=== PATIENT | male | born 1945 | race Caucasian/White ===

== ENCOUNTER 2019-02-03 09:09 | Day surgery (SDC) | payer MEDICARE, OTHER, SELFPAY ==
[2019-01-31 10:23] VITALS: BP 122/62; PULSE 61; RESP 18; TEMP 36.4; O2SAT 97; BMI 31.1
[2019-01-31 12:29] LABS: Hemoglobin A1c 8.1 % (4.2-6.3)
[2019-01-31 12:35] LABS: Thyroid Stim Hormone (TSH) 3.02 uIU/mL (0.358-3.74)
[2019-01-31 13:15] LABS: Anion Gap 7 (5-15); BUN 25 mg/dL (7-18); BUN/Creat Ratio 15.5 RATIO (10-20); Calcium,Total 9.2 mg/dL (8.5-10.1); Chloride 100 mmol/L (98-107); Creatinine, Serum 1.61 mg/dL (0.70-1.30); EST Glomerular Filtration Rate 45 mL/min (>60); Est Glom Filt Rate - Afr Amer 54 mL/min (>60); Estimated Creatinine Clearance 46.87 ml/min; Glucose 202 mg/dL (74-106); Potassium 3.8 mmol/L (3.5-5.1); Sodium Level 136 mmol/L (136-145)
[2019-02-03] VITALS (12 sets, daily range): BP systolic 116–163; BP diastolic 69–79; PULSE 42–105; RESP 14–18; TEMP 36.1–37.1; O2SAT 94–100; BMI 31.1
[2019-02-03 09:55] LABS: Bedside Glucose 181 mg/dL (70-110)
[2019-02-03] MEDS: Cefazolin 2 GM in 0.9% Normal Saline 100 ML IV (11:03)
--- NOTE | 2019-02-03 11:05 | PCM.DC.URO ---
Discharge Diet: Light diet - advance as tolerated Discharge Activity: Return to Normal Activity Call your doctor if your incision/area has: Sudden Increased Bleeding, Increased Pain/ Swelling, Increased Redness, Foul Smelling Discharge, Swelling at the incision site Call your doctor if you observe: Inability to urinate Instructions: Transurethral Resection of the Prostate (TURP): Home Recovery Allergies/Adverse Reactions: Allergies imipramine HCl [From Tofranil] Allergy (Verified 02/03/19 09:18) Unknown metoclopramide HCl [From Reglan] Allergy (Verified 02/03/19 09:18) Unknown oxycodone HCl [From Percocet] Allergy (Verified 02/03/19 09:18) Unknown Penicillins [PCN] Allergy (Verified 02/03/19 09:18) Unknown phenol [From Chloraseptic] Allergy (Verified 02/03/19 09:18) Unknown sodium phenolate [From Chloraseptic] Allergy (Verified 02/03/19 09:18) Unknown Medications to take at Discharge Finasteride [Proscar] 5 mg PO QHS 07/13/14 Pantoprazole Sodium [Protonix] 40 mg PO DAILY 07/13/14 Simvastatin [Zocor] 20 mg PO QHS 07/13/14 Tamsulosin HCl [Flomax] 0.8 mg PO QHS 07/13/14 Clopidogrel Bisulfate [Plavix] 75 mg PO DAILY #30 tab 07/14/14 amlodipine 10 mg tablet 10 mg PO QHS 06/24/17 carvedilol 12.5 mg tablet 12.5 mg PO BID 06/24/17 levothyroxine 150 mcg tablet 150 mcg PO QDAY tab 06/24/17 lisinopril 30 mg tablet 40 mg PO QHS 06/24/17 metformin 1,000 mg tablet 1,000 mg PO BID 06/24/17 Albuterol Inhaler [Ventolin Hfa (SP)] 1 - 2 puff INHALATION Q6H PRN PRN 01/31/19 Alogliptin Benzoate [Alogliptin] 25 mg PO DAILY 01/31/19 Furosemide [Lasix] 20 mg PO DAILY 01/31/19 Hydralazine HCl 25 mg PO BID 01/31/19 Hydrochlorothiazide [Hctz] 25 mg PO DAILY 01/31/19 Pioglitazone HCl 15 mg PO DAILY 01/31/19 Sertraline HCl [Zoloft] 100 mg PO QHS 01/31/19 Smz/Tmp Ds [Bactrim Ds] 1 tab PO DAILY 01/31/19 Tiotropium [place] [Spiriva 18 MCG] 2 puff INHALATION DAILY 01/31/19 Ciprofloxacin [Cipro] 500 mg PO BID #20 tab 02/03/19 The following prescriptions were given: Ciprofloxacin [Cipro] 500 mg PO BID #20 tab Prescription Printed Orders to be completed after discharge: Basic Metabolic Profile (BMP) Time Frame: 01/31/19, Facility: [facility], Location: Laboratory Primary Care Physician: Jeanmarie Marsh DO [Primary Care Provider] - Test Results: Test results from this visit will be discussed in further detail at your follow-up appointment, if applicable. Please Follow Up With: Daniele Sampson MD When: in 2 weeks, please call to make an appointment.
--- NOTE | 2019-02-03 11:30 | PROS_PTH ---
PATIENT: BROWN HERNANDEZ [place] [facility] [id number] AGE/SX: 73/M ROOM: RE02/03/[address]: Dr. Daniele Sampson MD : 1945 BED: DIS: 02/04/2019 SPEC #: [id number] RECD: 02/03/19 14:46 STATUS: LUZ MARIA REKalani #: [id number] KEIRA: 02/03/19 11:[address]: Daniele Sampson DEPT: SURGICAL PATHOLOGY RECD BY: Chyna Sexton ENTERED: 02/06/19 10:34 SP TYPE: TURP OTHR DR: Dr. Jeanmarie Marsh, Tissues: Prostate, NOS Procedures: Surgery Specimen Level IV HEADER OPERATION: Cysto, TUR, prostate, Olympus PRE-OP DIAGNOSIS: Benign prostate hyperplasia with lower urinary tract symptoms, other urine retention, poor urinary stream TISSUE SUBMITTED: Prostate tissue MICROSCOPIC DIAGNOSIS Prostate, transurethral resection: Benign nodular hyperplasia. Chronic granulomatous prostatitis. AM:will 02/07/19 MICROSCOPIC DESCRIPTION Slides are reviewed. GROSS DESCRIPTION Received is one container labeled with the patient's name and designated prostate tissue. The specimen consists of multiple irregular fragments of pink-masters, rubbery, soft tissue that in aggregate weigh 4.8 gm and measure in aggregate 6 x 3 x 0.8 cm. The entire specimen is submitted in five cassettes. / AM:will 02/06/19 TC:3 CPT: 68323
--- NOTE | 2019-02-03 11:44 | OP.PCM_ITS ---
Report of Operation Date of Procedure: 02/03/19 Pre-Operative Diagnosis: BPH with obstruction and urinary retention Post-Operative Diagnosis: The same Surgery/Procedure Performed:: Transurethral resection of the prostate with a bipolar Olympus Description of Surgical Findings:: Indication 73-year-old male with BPH obstruction and retention the urine is failed a voiding trial and medications so we can proceed with surgery with a resection of the prostate. Patient was taken back to the operating room at the smooth induction of general anesthesia he was placed supine on the table, penis and testicles are prepped and draped in usual sterile fashion, catheter was removed, we prepped the patient up for a cystoscopy, placed in dorsolithotomy position, went into the bladder with a 26 Slovenian continuous flow resectoscope, identified the veru montanum and marked this at this marked this to make sure the we did not resect past this. And then started the resection of the bladder neck back to the marked from the verumontanum and then resected circumferentially from the 6:00 to 12 o'clock position resecting all the obstructing tissue he had a lot of anterior tissue that was obstructing the channel I then did a flow test and fairly slow flow so went back looked at the apical tissue very carefully resect a little bit more apical tissue then another flow test and had a nice wide open flow but at this point I Ellik out all the chips from the bladder obtained hemostasis place a 22 Slovenian catheter into the bladder the left and right ureter orifice were identified after resection are uninjured and then I placed a catheter bladder and continuous irrigation is taken back to PACU in good condition. Type of Anesthesia:: General Drains: 22fr 3 way - Admit VTE Documentation VTE Present on Admission: No VTE Mechan Device Prophylaxis: SCD's
[2019-02-03 12:10] LABS: Bedside Glucose 156 mg/dL (70-110)
[2019-02-03] MEDS: 0.9% Normal Saline 1,000 ML 75 ML IV ×2 (12:44→23:53)
[2019-02-03] MEDS: Ipratropium 0.5 MG/2.5 ML SOLUTION INHALATION ×2 (13:58→18:57)
[2019-02-03] MEDS: metFORMIN HCl 1,000 MG Tablet 1000 MG PO (16:39)
[2019-02-03] MEDS: Ciprofloxacin 500 MG Tablet PO (21:50)
[2019-02-03] MEDS: Docusate Sodium 100 MG Capsule 200 MG PO (21:50)
[2019-02-03] MEDS: Carvedilol 12.5 MG Tablet PO (21:51)
[2019-02-03] MEDS: Tamsulosin HCl 0.4 MG Capsule 0.8 MG PO (21:52)
[2019-02-03] MEDS: amLODIPine 10 MG Tablet PO (21:52)
[2019-02-03] MEDS: Sertraline 100 MG Tablet PO (21:52)
[2019-02-03] MEDS: Atorvastatin Calcium 10 MG Tablet PO (21:52)
[2019-02-03] MEDS: Lisinopril 40 MG Tablet PO (21:53)
[2019-02-03] MEDS: Finasteride 5 MG Tablet PO (21:54)
[2019-02-03] MEDS: oxyCODONE 5 MG Tablet PO (21:58)
[2019-02-03] MEDS: Acetaminophen 325 MG Tablet PO (21:58)
[2019-02-04 04:17] VITALS: BP 123/68; PULSE 56; RESP 18; TEMP 36.5; O2SAT 93
[2019-02-04] MEDS: Levothyroxine 150 MCG Tablet PO (06:13)
[2019-02-04] MEDS: Ibuprofen 600 MG Tablet PO (06:16)
[2019-02-04 06:45] VITALS: PULSE 55; RESP 12; O2SAT 93
[2019-02-04] MEDS: Ipratropium 0.5 MG/2.5 ML SOLUTION INHALATION ×2 (06:45→13:11)
[2019-02-04 08:26] VITALS: BP 140/76; PULSE 60; RESP 18; TEMP 36.9; O2SAT 94
[2019-02-04 08:40] VITALS: PULSE 60
[2019-02-04] MEDS: Pioglitazone Hydrochloride 15 MG Tablet PO (08:40)
[2019-02-04] MEDS: metFORMIN HCl 1,000 MG Tablet 1000 MG PO (08:40)
[2019-02-04] MEDS: Smz/Tmp Ds Tablet 1 TABLET PO (08:40)
[2019-02-04] MEDS: Furosemide 20 MG Tablet PO (08:40)
[2019-02-04] MEDS: hydrALAZINE 25 MG Tablet PO (08:40)
[2019-02-04] MEDS: Pantoprazole Sodium 40 MG Tablet PO (08:41)
[2019-02-04] MEDS: Docusate Sodium 100 MG Capsule 200 MG PO (08:41)
[2019-02-04] MEDS: hydroCHLOROthiazide 25 MG Tablet PO (08:41)
[2019-02-04] MEDS: Carvedilol 12.5 MG Tablet PO (08:41)
[2019-02-04] MEDS: Ciprofloxacin 500 MG Tablet PO (08:41)
[2019-02-04 13:11] VITALS: PULSE 57; RESP 12
[2019-02-04 13:56] VITALS: BP 140/85; PULSE 68; RESP 18; TEMP 36.9; O2SAT 98
[2019-02-04] MEDS: 0.9% NaCl Peripheral Flush Adult/Peds IV (13:59)
[2019-02-04] MEDS: Ondansetron 4 MG/2 ML Vial IV (13:59)
== END 2019-02-04 15:25 | disposition home or self-care (01) ==
LOC: SDC 09:10 → AC 09:11 → MS3 11:13
PROVIDERS: Anesthesiology; Family Provider Family Medicine; PCP Family Medicine; Referring Provider Urology; Visit Provider Urology
PROC: (CPT 52601; principal; 2019-02-03 11:20)
DX: N41.1 Chronic prostatitis (principal); N40.1 Benign prostatic hyperplasia with lower urinary tract symptoms; R39.12 Poor urinary stream; R33.9 Retention of urine, unspecified; I10 Essential (primary) hypertension; E11.9 Type 2 diabetes mellitus without complications; E03.9 Hypothyroidism, unspecified; I25.10 Atherosclerotic heart disease of native coronary artery without angina pectoris; Z95.1 Presence of aortocoronary bypass graft; K21.9 Gastro-esophageal reflux disease without esophagitis; Z87.891 Personal history of nicotine dependence; J44.9 Chronic obstructive pulmonary disease, unspecified
CPT/HCPCS: 00914; 52601; 36415; 80048; 82962; 83036; 84443; 88305; 94640; J7030; J7120; A4216; J2405

== ENCOUNTER → 2019-06-15 13:37 | Outpatient (CLI) | payer MEDICARE, OTHER, SELFPAY ==
[2019-02-03 13:09] VITALS: BMI 31.1
[2019-06-15 16:31] LABS: PSA,Total- Diagnostic 2.75 ng/mL (0.0-4.0)
== END ==
PROVIDERS: Family Provider Family Medicine; PCP Family Medicine; Referring Provider Urology; Visit Provider Urology
DX: N40.1 Benign prostatic hyperplasia with lower urinary tract symptoms (principal)
CPT/HCPCS: 36415; 84153